=== PATIENT | male | born 1950 | race Caucasian/White ===

== ENCOUNTER 2017-04-22 17:31 | Inpatient (IN) | payer OTHER ==
[2017-04-22] MEDS: Sodium Chloride 0.9% 10 ML Syringe FLUSH PRN ×2 (19:02→20:13)
--- NOTE | 2017-04-22 19:25 | EDM.PDOC ---
ED HPI GENERAL MEDICAL PROBLEM - General Chief Complaint: Gastrointestinal Problem Stated Complaint: [facility] Time Seen by Provider: 04/22/17 19:00 Source of Information: Reports: Patient, RN Notes Reviewed History Limitations: Reports: No Limitations - History of Present Illness INITIAL COMMENTS - FREE TEXT/NARRATIVE: Case assumed from May Méndez. The patient states that for the past 5 days he has had a decreased appetite, subjective fever, generalized aches and pains, and slight watery diarrhea. He denies having nausea, vomiting, constipation, or urinary symptoms. He denies chest pain, palpitations, and abdominal pain. He denies dyspnea at rest, but states that he has had dyspnea on exertion for about a year. He denies prior similar symptoms. He states that he is taking ibuprofen as needed. The patient has a history of atrial fibrillation, but is not able to tell if he is in atrial fibrillation. Here in the ED, his monitor indicates atrial fibrillation. The patient's PCP is in [place], but he does not recall her name. Generalized Pain Score (Numeric/FACES): 5 - Related Data Allergies Allergy/AdvReac Type Severity Reaction Status Date / Time No Known Allergies Allergy Verified 04/22/17 18:07 Past Medical History Cardiovascular History: Reports: Afib, High Cholesterol Gastrointestinal History: Reports: Colon Polyp, GERD Genitourinary History: Reports: BPH Musculoskeletal History: Reports: Osteoarthritis (knees) Psychiatric History: Reports: Depression Endocrine/Metabolic History: Reports: Diabetes, Type II, Obesity/BMI 30+ - Past Surgical History HEENT Surgical History: Reports: Oral Surgery ([place] teeth extraction), Tonsillectomy Cardiovascular Surgical History: Reports: Other (See Below) (Coronary angiogram 2014) GI Surgical History: Reports: Appendectomy Musculoskeletal Surgical History: Reports: Knee Replacement (right) Social & Family History - Tobacco Use Smoking Status *Q: Current Every Day Smoker Years of Tobacco use: 55 Packs/Tins Daily: 1 Packs/Tins Daily Comment: Down from 3 ppd - Alcohol Use Alcohol Use History: Yes Alcohol Use Frequency: Rarely - Recreational Drug Use Recreational Drug Use: Yes Drug Use in Last 12 Months: Yes Recreational Drug Type: Reports: Marijuana/Hashish Recreational Drug Use Frequency: Socially - Living Situation & Occupation Living situation: Reports: , Alone Occupation: Employed (self-employed) ED ROS GENERAL - Review of Systems Review Of Systems: See Below Constitutional: Reports: No Symptoms HEENT: Reports: No Symptoms Respiratory: Reports: No Symptoms Cardiovascular: Reports: No Symptoms Endocrine: Reports: No Symptoms GI/Abdominal: Reports: No Symptoms : Reports: No Symptoms Musculoskeletal: Reports: No Symptoms Skin: Reports: No Symptoms Neurological: Reports: No Symptoms Psychiatric: Reports: No Symptoms Hematologic/Lymphatic: Reports: No Symptoms Immunologic: Reports: No Symptoms ED EXAM, GENERAL - Physical Exam Exam: See Below Exam Limited By: No Limitations General Appearance: Alert, WD/WN, No Apparent Distress Eye Exam: Bilateral Eye: Normal Inspection Ears: Normal External Exam, Hearing Grossly Normal Nose: Normal Inspection, No Blood Throat/Mouth: Normal Inspection, Normal Lips, Normal Voice, No Airway Compromise Head: Atraumatic, Normocephalic Neck: Normal Inspection, Full Range of Motion Respiratory/Chest: No Respiratory Distress, Lungs Clear, Normal Breath Sounds, No Accessory Muscle Use Cardiovascular: Normal Peripheral Pulses, No Gallop, No JVD, No Murmur, No Rub, Irregularly Irregular (normal rate) Peripheral Pulses: 4+: Radial (L), Radial (R) GI/Abdominal: Normal Bowel Sounds, Soft, Non-Tender, No Organomegaly, No Distention, No Abnormal Bruit, No Mass (Male) Exam: Deferred Rectal (Males) Exam: Deferred Back Exam: Normal Inspection, Full Range of Motion, NT Extremities: Normal Inspection, Normal Range of Motion, No Pedal Edema, Normal Capillary Refill Neurological: Alert, Oriented, Normal Cognition, No Motor/Sensory Deficits Psychiatric: Normal Affect Skin Exam: Warm, Dry, Intact, Normal Color, No Rash Lymphatic: No Adenopathy EKG INTERPRETATION EKG Date: 04/22/17 Time: 18:44 Rhythm: A-Fib Rate (Beats/Min): 107 [place]: Normal P-Wave: Absent QRS: Normal ST-T: Normal QT: Normal Comparison: NA - No Prior EKG Course - Vital Signs Last Recorded V/S: Last Vital Signs Temp 37.6 C 04/22/17 20:37 Pulse 72 04/22/17 18:07 Resp 20 04/22/17 18:07 BP 97/68 04/22/17 20:37 Pulse Ox 98 04/22/17 18:07 Orthostatic Blood Pressure [ 114/92 Standing] Orthostatic Blood Pressure [ 120/95 Supine] - Orders/Labs/Meds Orders: Active Orders 24 hr Category Date Time Status Cardiac Monitoring [RC] . DIRECTED Care 04/22/17 18:37 Active EKG 12 Lead [EKG Documentation Completion] [RC] STAT Care 04/22/17 18:37 Active Orthostatic Vital Signs [RC] STAT Care 04/22/17 19:23 Active Peripheral IV Care [RC] . DIRECTED Care 04/22/17 18:38 Active CXR [Chest 1V Frontal] [CR] Stat Exams 04/22/17 18:37 Taken CULTURE BLOOD [BC] Stat Lab 04/22/17 19:10 Received CULTURE BLOOD [BC] Stat Lab 04/22/17 19:25 Received Sodium Chloride 0.9% [Normal Saline] 1,000 ml Med 04/22/17 20:45 Active IV ASDIRECTED Sodium Chloride 0.9% [Saline Flush] Med 04/22/17 18:37 Active 10 ml FLUSH ASDIRECTED PRN Blood Culture x2 Reflex Set [OM.PC] Stat Oth 04/22/17 18:48 Ordered Peripheral IV Insertion Adult [OM.PC] Stat Oth 04/22/17 18:37 Ordered Medication Orders Acetaminophen (Tylenol) 650 mg PO Q4H PRN PRN Reason: Pain (Mild 1-3)/fever Hydrocodone Bitart/Acetaminophen ([place] 325-5 Mg) 2 tab PO Q4H PRN PRN Reason: Pain (moderate 4-6) Albuterol/Ipratropium (Duoneb 3.0-0.5 Mg/3 Ml) 3 ml NEB Q4H PRN PRN Reason: Shortness Of Breath/wheezing Bisacodyl (Dulcolax) 5 mg PO DAILY PRN PRN Reason: Constipation Docusate Sodium (Colace) 100 mg PO BID PRN PRN Reason: Constipation Hydromorphone HCl (Dilaudid) 0.25 mg IVPUSH Q2H PRN PRN Reason: Pain (severe 7-10) Sodium Chloride (Normal Saline) 1,000 mls @ 250 mls/hr IV ASDIRECTED JODY Norepinephrine Bitartrate 4 mg (/ Dextrose/Water) 250 mls @ 37.5 mls/hr IV TITRATE JODY; 10 MCG/MIN PRN Reason: Protocol Last Admin: 04/22/17 21:29 Dose: 2 mcg/min, 7.5 mls/hr Promethazine HCl 12.5 mg/ (Sodium Chloride) 50.5 mls @ 100 mls/hr IV Q6H PRN PRN Reason: Nausea/Vomiting Lorazepam (Ativan) 1 mg IV Q6H PRN PRN Reason: Anxiety Ondansetron HCl (Zofran) 4 mg IV Q6H PRN PRN Reason: Nausea/Vomiting Polyethylene Glycol (Miralax) 17 gm PO DAILY PRN PRN Reason: Constipation Senna/Docusate Sodium (Senna Plus) 1 tab PO BID PRN PRN Reason: Constipation Sodium Chloride (Saline Flush) 10 ml FLUSH ASDIRECTED PRN PRN Reason: Keep Vein Open Last Admin: 04/22/17 20:13 Dose: 10 ml Admin: 04/22/17 19:02 Dose: 10 ml Temazepam (Restoril) 30 mg PO BEDTIME PRN PRN Reason: Sleep Labs: Laboratory Tests 04/22/17 04/22/17 04/22/17 Range/Units 18:20 18:20 18:20 WBC 9.06 (4.23-9.07) K/mm3 RBC 5.87 (4.63-6.08) M/mm3 Hgb 16.6 (13.7-17.5) gm/L Hct 47.2 (40.1-51.0) % MCV 80.4 (79.0-92.2) fl MCH 28.3 (25.7-32.2) pg MCHC 35.2 (32.2-35.5) g/dl RDW Std Deviation 47.8 H (35.1-43.9) fL Plt Count 210 (163-337) K/mm3 MPV 11.2 (9.4-12.3) fl Neutrophils % (Manual) 71 H (40-60) % Band Neutrophils % 0 (0-10) % Lymphocytes % (Manual) 20 (20-40) % Atypical Lymphs % 0 % Monocytes % (Manual) 8 (2-10) % Eosinophils % (Manual) 0 L (0.8-7.0) % Basophils % (Manual) 1 (0.2-1.2) Platelet Estimate Adequate RBC Morph Comment Normal PT (8.0-13.0) SECONDS INR APTT (22-36) SECONDS D-Dimer, Quantitative 2.27 H (0.19-0.59) mg/L Sodium 128 L (136-145) mEq/L Potassium 4.0 (3.5-5.1) mEq/L Chloride 95 L (98-107) mEq/L Carbon Dioxide 22 (21-32) mEq/L Anion Gap 15.0 (5-15) BUN 46 H (7-18) mg/dL Creatinine 1.9 H (0.7-1.3) mg/dL Est Cr Clr Drug Dosing 37.50 mL/min Estimated GFR (MDRD) 36 (>60) mL/min BUN/Creatinine Ratio 24.2 H (14-18) Glucose 120 H (80-115) mg/dL Calcium 9.1 (8.5-10.1) mg/dL Total Bilirubin 1.5 H (0.2-1.0) mg/dL AST 22 (15-37) U/L ALT 38 (16-63) U/L Alkaline Phosphatase 73 (46-116) U/L Troponin I < 0.017 (0.00-0.056) ng/mL NT-Pro-B Natriuret Pep (0-125) pg/mL Total Protein 8.0 (6.4-8.2) g/dl Albumin 3.7 (3.4-5.0) g/dl Globulin 4.3 gm/dL Albumin/Globulin Ratio 0.9 L (1-2) TSH 3rd Generation (0.358-3.74) uIU/mL 04/22/17 04/22/17 Range/Units 18:20 18:20 WBC (4.23-9.07) K/mm3 RBC (4.63-6.08) M/mm3 Hgb (13.7-17.5) gm/L Hct (40.1-51.0) % MCV (79.0-92.2) fl MCH (25.7-32.2) pg MCHC (32.2-35.5) g/dl RDW Std Deviation (35.1-43.9) fL Plt Count (163-337) K/mm3 MPV (9.4-12.3) fl Neutrophils % (Manual) (40-60) % Band Neutrophils % (0-10) % Lymphocytes % (Manual) (20-40) % Atypical Lymphs % % Monocytes % (Manual) (2-10) % Eosinophils % (Manual) (0.8-7.0) % Basophils % (Manual) (0.2-1.2) Platelet Estimate RBC Morph Comment PT 12.3 (8.0-13.0) SECONDS INR 1.12 APTT 28 (22-36) SECONDS D-Dimer, Quantitative (0.19-0.59) mg/L Sodium (136-145) mEq/L Potassium (3.5-5.1) mEq/L Chloride (98-107) mEq/L Carbon Dioxide (21-32) mEq/L Anion Gap (5-15) BUN (7-18) mg/dL Creatinine (0.7-1.3) mg/dL Est Cr Clr Drug Dosing mL/min Estimated GFR (MDRD) (>60) mL/min BUN/Creatinine Ratio (14-18) Glucose (80-115) mg/dL Calcium (8.5-10.1) mg/dL Total Bilirubin (0.2-1.0) mg/dL AST (15-37) U/L ALT (16-63) U/L Alkaline Phosphatase (46-116) U/L Troponin I (0.00-0.056) ng/mL NT-Pro-B Natriuret Pep 324 H (0-125) pg/mL Total Protein (6.4-8.2) g/dl Albumin (3.4-5.0) g/dl Globulin gm/dL Albumin/Globulin Ratio (1-2) TSH 3rd Generation 3.689 (0.358-3.74) uIU/mL Meds: Medications Generic Name Dose Route Start Last Admin Trade Name Freq PRN Reason Stop Dose Admin Acetaminophen 650 mg 04/22/17 21:48 Tylenol PO Q4H PRN Pain (Mild 1-3)/fever Hydrocodone Bitart/Acetaminophen 2 tab 04/22/17 21:48 [place] 325-5 Mg PO Q4H PRN Pain (moderate 4-6) Albuterol/Ipratropium 3 ml 04/22/17 21:48 Duoneb 3.0-0.5 Mg/3 Ml NEB Q4H PRN Shortness Of Breath/wheezing Bisacodyl 5 mg 04/22/17 21:48 Dulcolax PO DAILY PRN Constipation Docusate Sodium 100 mg 04/22/17 21:48 Colace PO BID PRN Constipation Hydromorphone HCl 0.25 mg 04/22/17 21:48 Dilaudid IVPUSH Q2H PRN Pain (severe 7-10) Sodium Chloride 1,000 mls @ 250 mls/hr 04/22/17 20:45 Normal Saline IV ASDIRECTED JODY Norepinephrine Bitartrate 4 mg 250 mls @ 37.5 mls/hr 04/22/17 21:15 04/22/17 21:29 / Dextrose/Water IV 2 mcg/min TITRATE JODY 7.5 mls/hr Protocol Administration 10 MCG/MIN Promethazine HCl 12.5 mg/ 50.5 mls @ 100 mls/hr 04/22/17 21:48 Sodium Chloride IV Q6H PRN Nausea/Vomiting Lorazepam 1 mg 04/22/17 21:48 Ativan IV Q6H PRN Anxiety Ondansetron HCl 4 mg 04/22/17 21:48 Zofran IV Q6H PRN Nausea/Vomiting Polyethylene Glycol 17 gm 04/22/17 21:48 Miralax PO DAILY PRN Constipation Senna/Docusate Sodium 1 tab 04/22/17 21:48 Senna Plus PO BID PRN Constipation Sodium Chloride 10 ml 04/22/17 18:37 04/22/17 20:13 Saline Flush FLUSH 10 ml ASDIRECTED PRN Administration Keep Vein Open Temazepam 30 mg 04/22/17 21:48 Restoril PO BEDTIME PRN Sleep Discontinued Medications Generic Name Dose Route Start Last Admin Trade Name Chenteq PRN Reason Stop Dose Admin Sodium Chloride 1,000 mls @ 150 mls/hr 04/22/17 19:30 04/22/17 19:34 Normal Saline IV 150 mls/hr ASDIRECTED JODY Administration Dextrose/Water Confirm 04/22/17 21:21 04/22/17 21:34 Dextrose 5% In Water Administered 04/22/17 21:22 Not Given Dose 250 mls @ as directed .ROUTE .[facility]K-[facility] ONE Iopamidol 100 ml 04/22/17 19:51 04/22/17 20:13 Isovue-370 (76%) IVPUSH 04/22/17 19:52 100 ml ONETIME ONE Administration Norepinephrine Bitartrate Confirm 04/22/17 21:20 04/22/17 21:35 Levophed Administered 04/22/17 21:21 Not Given Dose 4 mg .ROUTE .[facility] ONE - Re-Assessments/Exams Free Text/Narrative Re-Assessment/Exam: 04/22/17 19:24 Portable chest radiograph appears to be grossly normal. Cardiac silhouette is within normal limits. No pulmonary vascular congestion. No pleural effusions. No focal infiltrate. No pneumothorax. Formal read per the Radiologist pending. The patient's D-dimer has returned as substantially elevated at 2.27. His BUN/ Cr are elevated at 46/1.9, and his sodium depressed at 128. The patient states that he is on an anticoagulant, but we do not know which one that is. Review of prior medical records indicates that the patient's CMP was normal on I have ordered a CT angiogram of the chest to evaluate for PE. I have added coags, a BNP, TSH, and orthostatics to the patient's orders. I will start the patient on normal saline at 150 mL/hr. 04/22/17 19:50 The patient is not orthostatic. 04/22/17 20:46 CT angiogram of the chest is read by Dr. Heck as: 1. No findings of pulmonary embolism. 2. Other incidental findings with nothing acute being seen on CT study of the chest. 04/22/17 20:47 04/22/17 20:51 Test results discussed with the patient. Today's workup finds that he has hyponatremia and acute renal failure, both of which were normal on 04/02/2017. He is in atrial fibrillation, but has been rate controlled for most of his ED visit. He is on Xarelto. His blood pressure has been dropping - it was normal when he firt arrived, but has since declined to the low 90's. I'm recommending admission to the ICU for aggressive IV fluid replacement. He is agreeable. 04/22/17 20:[address] Kincaid at 20:52. He agrees to admit the patient to the ICU. 04/22/17 21:13 The patient's blood pressure has dropped further, down to 82/65, although is currently at 89/49 with a MAP of 61. I would start the patient on Levophed 10 mcg/min. Dr. Kincaid has been notified of this change, and is agreeable. 04/22/17 21:57 The patient was started on Levophed 2 mcg/min, however, his blood pressure responded very well, therefore his rate has been decreased to 1 mcg/min. Departure - Departure Time of Disposition: 20:55 Disposition: Admitted As Inpatient 68 Condition: Fair Clinical Impression: Hyponatremia, Acute renal insufficiency, Hypotension, Atrial fibrillation - Discharge Information - My Orders Last 24 Hours: My Active Orders 04/22/17 19:23 Orthostatic Vital Signs [RC] STAT 04/22/17 20:45 Sodium Chloride 0.9% [Normal Saline] 1,000 ml IV ASDIRECTED - Assessment/Plan Last 24 Hours: My Active Orders 04/22/17 19:23 Orthostatic Vital Signs [RC] STAT 04/22/17 20:45 Sodium Chloride 0.9% [Normal Saline] 1,000 ml IV ASDIRECTED
[2017-04-22] MEDS ORDERED: Sodium Chloride 0.9% 1,000 ML IV SCH (19:30)
[2017-04-22] MEDS ORDERED: Iopamidol 755 Mg/ML 100 ML Bottle IVPUSH ONE (19:51)
--- NOTE | 2017-04-22 20:40 | CT ---
CT chest Technique: Multiple axial sections through the chest were obtained. Intravenous contrast was utilized. Study has been performed as a pulmonary angiogram protocol. Comparison: No prior chest CT, previous chest x-ray performed earlier on the same day is available. Findings: Pulmonary arteries are well-opacified. No filling defects are identified to indicate pulmonary embolism. Mediastinum and hilar regions show no adenopathy or mass. Mild coronary artery calcification is seen. No pericardial thickening is identified. Visualized upper abdominal structures appear within normal limits. Lungs are clear. No pleural effusions are seen. Bone window settings were reviewed which shows scattered degenerative spurring within the spine. Impression: 1. No findings of pulmonary embolism. 2. Other incidental findings with nothing acute being seen on CT study of the chest. Diagnostic code #2
[2017-04-22] MEDS ORDERED: Norepinephrine 4 MG in Dextrose 5% in Water 246 ML IV SCH ×2 (21:15)
[2017-04-22] MEDS ORDERED: Norepinephrine 4 MG/4 ML SDV ONE (21:20)
[2017-04-22] MEDS ORDERED: Dextrose 5% in Water 250 ML ONE (21:21)
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
[2017-04-22] MEDS ORDERED: Ondansetron 4 MG/2 ML SDV IV PRN (21:48)
[2017-04-22] MEDS ORDERED: Temazepam 30 MG Cap PO PRN (21:48)
[2017-04-22] MEDS ORDERED: Albuterol/Ipratropium 3.0-0.5 MG/3 ML Neb Soln NEB PRN (21:48)
[2017-04-22] MEDS ORDERED: Promethazine 12.5 MG in Sodium Chloride 0.9% 50 ML IV PRN (21:48)
[2017-04-22] MEDS ORDERED: Docusate Sodium 100 MG Cap PO PRN (21:48)
[2017-04-22] MEDS ORDERED: HYDROmorphone 0.5 MG/0.5 ML Syringe IVPUSH PRN (21:48)
[2017-04-22] MEDS ORDERED: Acetaminophen/HYDROcodone 325-5 MG Tab PO PRN (21:48)
[2017-04-22] MEDS ORDERED: Polyethylene Glycol 3350 Powder 17 GM Packet PO PRN (21:48)
[2017-04-22] MEDS ORDERED: LORazepam 2 MG/ML MDV IV PRN (21:48)
[2017-04-22] MEDS ORDERED: Bisacodyl 5 MG Tab PO PRN (21:48)
[2017-04-22] MEDS ORDERED: Potassium Chloride/Sodium Chloride Tab PO PRN ×2 (21:55→22:22)
[2017-04-22] MEDS ORDERED: 50% Dextrose in Water 50 ML Syringe IVPUSH PRN (21:57)
[2017-04-22] MEDS ORDERED: Insulin Aspart 100 Units/ML 3 ML Pen SUBCUT PRN (21:57)
[2017-04-22] MEDS ORDERED: Nicotine 21 MG/24 Hr Patch TRDERM ONE (21:59)
[2017-04-22] MEDS ORDERED: Metoprolol Tartrate 5 MG/5 ML SDV IVPUSH PRN (22:00)
[2017-04-22] MEDS ORDERED: hydrALAZINE 20 MG/ML SDV IVPUSH PRN (22:00)
[2017-04-22] MEDS ORDERED: LORazepam 2 MG/ML MDV IVPUSH PRN (22:00)
[2017-04-22] MEDS ORDERED: Tamsulosin 0.4 MG Cap.ER PO ONE (22:01)
[2017-04-22] MEDS: Potassium Chloride/Sodium Chloride Tab PO SCH (22:54)
[2017-04-23] MEDS: Sodium Chloride 0.9% 1,000 ML IV SCH ×3 (00:23→08:46)
--- NOTE | 2017-04-23 08:38 | CR ---
Chest: Portable view of the chest was obtained. Comparison: No prior study. Heart size and mediastinum are normal. Lungs are clear. Bony structures shows degenerative endplate spurring within the spine. Impression: 1. Nothing acute is seen on portable chest x-ray. Diagnostic code #2
[2017-04-23] MEDS: Potassium Chloride/Sodium Chloride Tab PO SCH ×3 (08:46→20:41)
[2017-04-23] MEDS: Tamsulosin 0.4 MG Cap.ER PO SCH ×2 (08:46→18:33)
[2017-04-23] MEDS: Nicotine 21 MG/24 Hr Patch TRDERM SCH (08:47)
[2017-04-23] MEDS ORDERED: Potassium Chloride/Sodium Chloride Tab PO SCH (09:00)
[2017-04-23] MEDS: Rivaroxaban 10 MG Tab PO SCH (09:54)
[2017-04-23] MEDS: Dronabinol 2.5 MG Cap PO SCH ×2 (12:12→17:52)
[2017-04-23] MEDS: Acetaminophen 325 MG Tab PO PRN ×3 (12:18→21:35)
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
[2017-04-23] MEDS: glipiZIDE 2.5 MG Tab.ER PO SCH (20:41)
[2017-04-23] MEDS ORDERED: Famotidine 20 MG Tab PO SCH ×2 (21:00)
[2017-04-23] MEDS ORDERED: Simvastatin 20 MG Tab PO SCH (21:00)
[2017-04-23] MEDS ORDERED: Latanoprost 0.005% Ophth Soln 2.5 ML Bottle EYEBOTH SCH (21:00)
[2017-04-23] MEDS ORDERED: Rivaroxaban 10 MG Tab PO ONE (22:31)
[2017-04-24] MEDS ORDERED: Pantoprazole 40 MG Tab.CR PO SCH (06:00)
[2017-04-24] MEDS ORDERED: metFORMIN 500 MG Tab PO SCH (07:00)
[2017-04-24] MEDS ORDERED: Diltiazem 120 MG Cap.CD PO SCH (09:00)
[2017-04-24] MEDS ORDERED: Cholecalciferol (Vitamin D3) 1,000 Unit Tab PO SCH (09:00)
[2017-04-24] MEDS ORDERED: Digoxin 125 MCG Tab PO SCH (09:00)
[2017-04-24] MEDS ORDERED: Sertraline 50 MG Tab PO SCH (09:00)
[2017-04-24] MEDS: Rivaroxaban 10 MG Tab PO SCH (09:10)
[2017-04-24] MEDS: Nicotine 21 MG/24 Hr Patch TRDERM SCH (09:10)
[2017-04-24] MEDS: Tamsulosin 0.4 MG Cap.ER PO SCH (09:11)
[2017-04-24] MEDS: glipiZIDE 2.5 MG Tab.ER PO SCH (09:13)
[2017-04-24] MEDS: Dronabinol 2.5 MG Cap PO SCH (10:55)
[2017-04-24] MEDS: Acetaminophen 325 MG Tab PO PRN ×2 (10:57→15:33)
[2017-04-24 12:09] VITALS: BP 114/74
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
[2017-04-24] MEDS ORDERED: Pneumococcal 13-Valent Conjugate Vaccine 0.5 ML Syringe IM ONE (15:12)
== END 2017-04-24 15:40 | disposition home or self-care (01) | DRG 641 ==
LOC: JD.ED 17:31 → JD.ICU 21:01 → JD.MS 21:01
PROVIDERS: ADMIT Internal Medicine; ATTEND Internal Medicine
DX: E87.1 Hypo-osmolality and hyponatremia (principal); N17.9 Acute kidney failure, unspecified; I95.9 Hypotension, unspecified; I48.2 Chronic atrial fibrillation; K21.9 Gastro-esophageal reflux disease without esophagitis; N40.0 Benign prostatic hyperplasia without lower urinary tract symptoms; M17.0 Bilateral primary osteoarthritis of knee; F32.9 Major depressive disorder, single episode, unspecified; E11.9 Type 2 diabetes mellitus without complications; E66.9 Obesity, unspecified; Z68.30 Body mass index [BMI] 30.0-30.9, adult; F17.210 Nicotine dependence, cigarettes, uncomplicated; F12.90 Cannabis use, unspecified, uncomplicated; H54.7 Unspecified visual loss; H04.129 Dry eye syndrome of unspecified lacrimal gland; Z79.01 Long term (current) use of anticoagulants; E78.5 Hyperlipidemia, unspecified; I10 Essential (primary) hypertension; K90.0 Celiac disease; G47.33 Obstructive sleep apnea (adult) (pediatric); N52.9 Male erectile dysfunction, unspecified; E55.9 Vitamin D deficiency, unspecified; G47.00 Insomnia, unspecified; K57.90 Diverticulosis of intestine, part unspecified, without perforation or abscess without bleeding; B34.9 Viral infection, unspecified; Z79.84 Long term (current) use of oral hypoglycemic drugs; Z79.899 Other long term (current) drug therapy
CPT/HCPCS: 36415; 71010; 71010-26; 71275; 71275-26; 80048; 80053; 81001; 82962; 83036; 83605; 83735; 83880; 84439; 84443; 84484; 85025; 85379; 85610; 85730; 86140; 86308; 86665; 87040; 87086; 87493; 87496; 87799; 90670; 93005; 93010; 96361; 96365; 97116-GP; 97162-GP; 97166-GO; 99285-25; A9270-GY; J7040; J7050; J7060; Q0167; Q9967

== ENCOUNTER 2023-12-08 09:32 | Emergency (ER) | payer OTHER ==
[2023-12-08] MEDS: Ondansetron 4 MG/2 ML SDV IVPUSH ONE (10:35)
[2023-12-08] MEDS: Sodium Chloride 0.9% 1,000 ML IV STA (10:35)
[2023-12-08] MEDS: Sodium Chloride 0.9% 10 ML Syringe FLUSH PRN (10:36)
[2023-12-08 10:43] LABS: BASOPHILS ABSOLUTE AUTO 0.1 K/mm3 (0.0-0.2); BASOPHILS PERCENT AUTO 0.8 % (0.0-1.0); EOSINOPHILS ABSOLUTE AUTO 0.2 K/mm3 (0.0-0.4); EOSINOPHILS PERCENT AUTO 1.2 % (0.0-6.0); HEMATOCRIT 52.6 % (42.0-52.0); HEMOGLOBIN 17.8 gm/dl (14.0-18.0); IMMATURE GRAN ABSOLUTE AUTO 0.04 K/mm3 (0.00-0.05); IMMATURE GRAN PERCENT AUTO 0.3 % (0.0-0.4); LYMPHOCYTES ABSOLUTE AUTO 1.8 K/mm3 (1.0-4.8); LYMPHOCYTES PERCENT AUTO 13.7 % (24.0-44.0); MEAN CORPUSCULAR HEMOGLOBIN 29.3 pg (28.0-32.0); MEAN CORPUSCULAR HGB CONC 33.8 g/dl (32.0-36.0); MEAN CORPUSCULAR VOLUME 86.5 fl (83.0-99.0); MEAN PLATELET VOLUME 10.1 fl (9.4-12.4); MONOCYTES ABSOLUTE AUTO 1.5 K/mm3 (0.0-0.8); MONOCYTES PERCENT AUTO 11.7 % (0.0-8.0); NEUTROPHILS ABSOLUTE AUTO 9.4 K/mm3 (1.8-7.7); NEUTROPHILS PERCENT AUTO 72.3 % (41.0-71.0); PLATELET COUNT,PLT 251 K/mm3 (150-400); RED BLOOD CELL COUNT 6.08 M/mm3 (4.52-5.90)
[2023-12-08 11:04] LABS: A/G RATIO 0.8 (1-2); ALBUMIN 3.7 g/dl (3.4-5.0); ANION GAP 18.8 (5-15); BILIRUBIN TOTAL 0.9 mg/dL (0.2-1.0); BUN/CREATININE RATIO 13.8 (14-18); CALCIUM 9.5 mg/dL (8.5-10.1); CREATININE 2.1 mg/dL (0.7-1.3); EST CRCL DRUG DOSING (CG) 31.21 mL/min; POTASSIUM,K 3.8 mEq/L (3.5-5.1); PROTEIN TOTAL,TP 8.1 g/dl (6.4-8.2)
[2023-12-08 11:25] LABS: SLIDE REVIEW ABNORMAL SMEAR
[2023-12-08] MEDS: Sodium Chloride 0.9% 1,000 ML IV ONE (12:15)
[2023-12-08 13:14] VITALS: BP 123/78; PULSE 79
== END 2023-12-08 13:13 | disposition home or self-care (01) ==
LOC: JD.ED 09:32
DX: A04.72 Enterocolitis due to Clostridium difficile, not specified as recurrent (principal); N28.9 Disorder of kidney and ureter, unspecified; E86.0 Dehydration; E78.00 Pure hypercholesterolemia, unspecified; I48.91 Unspecified atrial fibrillation; J44.9 Chronic obstructive pulmonary disease, unspecified; E11.9 Type 2 diabetes mellitus without complications; F17.210 Nicotine dependence, cigarettes, uncomplicated; Z79.01 Long term (current) use of anticoagulants; Z79.51 Long term (current) use of inhaled steroids; Z79.899 Other long term (current) drug therapy; Z79.84 Long term (current) use of oral hypoglycemic drugs
CPT/HCPCS: 36415; 80053; 83690; 85025; 87045; 87046; 87324; 87493; 87899; 96361; 96374; 99284; J2405; J3490; J7030

== ENCOUNTER 2023-12-27 16:05 | Emergency (ER) | payer OTHER ==
[2023-12-27] MEDS: Sodium Chloride 0.9% 10 ML Syringe FLUSH PRN (17:30)
[2023-12-27] MEDS: Sodium Chloride 0.9% 2,000 ML IV SCH (17:30)
[2023-12-27 18:00] LABS: BASOPHILS ABSOLUTE AUTO 0.1 K/mm3 (0.0-0.2); BASOPHILS PERCENT AUTO 0.7 % (0.0-1.0); EOSINOPHILS ABSOLUTE AUTO 0.1 K/mm3 (0.0-0.4); EOSINOPHILS PERCENT AUTO 1.5 % (0.0-6.0); HEMOGLOBIN 17.2 gm/dl (14.0-18.0); IMMATURE GRAN ABSOLUTE AUTO 0.02 K/mm3 (0.00-0.05); IMMATURE GRAN PERCENT AUTO 0.3 % (0.0-0.4); LYMPHOCYTES ABSOLUTE AUTO 1.2 K/mm3 (1.0-4.8); LYMPHOCYTES PERCENT AUTO 17.4 % (24.0-44.0); MEAN CORPUSCULAR HEMOGLOBIN 29.4 pg (28.0-32.0); MEAN CORPUSCULAR HGB CONC 33.7 g/dl (32.0-36.0); MEAN PLATELET VOLUME 10.4 fl (9.4-12.4); MONOCYTES ABSOLUTE AUTO 0.7 K/mm3 (0.0-0.8); MONOCYTES PERCENT AUTO 10.6 % (0.0-8.0); NEUTROPHILS ABSOLUTE AUTO 4.6 K/mm3 (1.8-7.7); NEUTROPHILS PERCENT AUTO 69.5 % (41.0-71.0); PLATELET COUNT,PLT 268 K/mm3 (150-400); RED BLOOD CELL COUNT 5.86 M/mm3 (4.52-5.90); WHITE BLOOD CELL COUNT,WBC 6.67 K/mm3 (3.9-11.3)
[2023-12-27 18:09] LABS: A/G RATIO 0.8 (1-2); ALBUMIN 3.6 g/dl (3.4-5.0); ANION GAP 13.5 (5-15); BILIRUBIN TOTAL 0.6 mg/dL (0.2-1.0); BUN/CREATININE RATIO 16.7 (14-18); C-REACTIVE PROTEIN 3.7 mg/dL (<0.30); CALCIUM 9.8 mg/dL (8.5-10.1); CREATININE 2.1 mg/dL (0.7-1.3); EST CRCL DRUG DOSING (CG) 31.21 mL/min; POTASSIUM,K 3.5 mEq/L (3.5-5.1); PROTEIN TOTAL,TP 8.2 g/dl (6.4-8.2)
[2023-12-27 18:11] LABS: LACTIC ACID 0.8 mmol/L (0.4-2.0)
[2023-12-27 20:20] LABS: APPEARANCE,URINE CLEAR (Clear); BILIRUBIN,URINE 1+ (Negative); COLOR,URINE YELLOW (Yellow); GLUCOSE,URINE NEGATIVE (Negative); KETONES,URINE TRACE (Negative); LEUKOCYTE ESTERASE,URINE NEGATIVE (Negative); NITRITE,URINE NEGATIVE (Negative); OCCULT BLOOD,URINE NEGATIVE (Negative); PH,URINE 5.5 (5.0-8.0); PROTEIN,URINE 1+ (Negative); UROBILINOGEN,URINE 0.2 (0.2-1.0)
[2023-12-27 20:47] LABS: RBC,URINE 0-5 /hpf (0-5); WBC,URINE 0-5 /hpf (0-5)
[2023-12-27 20:48] LABS: BACTERIA,URINE MODERATE /hpf (FEW); MUCUS,URINE MODERATE /hpf (FEW)
[2023-12-28 00:30] VITALS: BP 118/84; PULSE 82
== END 2023-12-27 22:06 | disposition home or self-care (01) ==
LOC: JD.ED 16:05
DX: A04.72 Enterocolitis due to Clostridium difficile, not specified as recurrent (principal); J44.9 Chronic obstructive pulmonary disease, unspecified; E78.00 Pure hypercholesterolemia, unspecified; E11.9 Type 2 diabetes mellitus without complications; F17.210 Nicotine dependence, cigarettes, uncomplicated; Z79.899 Other long term (current) drug therapy; Z79.51 Long term (current) use of inhaled steroids; Z79.84 Long term (current) use of oral hypoglycemic drugs; Z79.01 Long term (current) use of anticoagulants
CPT/HCPCS: 36415; 80053; 81001; 83605; 83690; 83735; 85025; 86140; 87040; 87324; 87493; 93005; 96360; 96361; 99285; J3490; J7030; 93010; 99284

== ENCOUNTER 2024-01-25 14:09 | Emergency (ER) | payer OTHER ==
[2024-01-25 15:40] VITALS: BP 116/68; PULSE 78
== END 2024-01-25 15:20 | disposition home or self-care (01) ==
LOC: JD.ED 14:09
DX: M79.674 Pain in right toe(s) (principal); M79.675 Pain in left toe(s); E78.00 Pure hypercholesterolemia, unspecified; I48.91 Unspecified atrial fibrillation; J44.9 Chronic obstructive pulmonary disease, unspecified; K21.9 Gastro-esophageal reflux disease without esophagitis; E11.9 Type 2 diabetes mellitus without complications; Z79.51 Long term (current) use of inhaled steroids; Z79.899 Other long term (current) drug therapy
CPT/HCPCS: 99283

== ENCOUNTER 2024-02-11 17:30 | Emergency (ER) | payer OTHER | END 2024-02-11 17:51 | disposition left against medical advice (07) | LOC: JD.ED 17:30 | DX: Z53.21 Procedure and treatment not carried out due to patient leaving prior to being seen by health care provider (principal) ==